=== PATIENT | male | born 1950 | race Caucasian/White ===

== ENCOUNTER 2025-09-09 09:30 | Outpatient (RCR) | payer OTHER, SELFPAY | END 2025-09-09 23:59 | disposition home or self-care (01) | LOC: RPT 09:30 | PROVIDERS: ATTENDING PHYSICIAN Physician Assistant Surgical; FAMILY PHYSICIAN Internal Medicine Geriatric Medicine | DX: M75.112 Incomplete rotator cuff tear or rupture of left shoulder, not specified as traumatic (principal); M19.012 Primary osteoarthritis, left shoulder; Z73.6 Limitation of activities due to disability; M25.512 Pain in left shoulder; M62.81 Muscle weakness (generalized) | CPT/HCPCS: 97010; 97112; 97140; 97162; 97530 ==